=== PATIENT | male | born 1980 | race Caucasian/White ===

== ENCOUNTER 2025-02-01 11:59 | Day surgery (SDC) | payer OTHER ==
[2025-02-01] MEDS ORDERED: methylPREDNISolone acetate IM ONE (12:00)
[2025-02-01] MEDS ORDERED: Sodium Chloride 0.9(Preservative Free) 10 ML IJ ONE (12:00)
[2025-02-01] MEDS ORDERED: propofoL IV ONE (13:41)
[2025-02-01] MEDS ORDERED: Lactated Ringers 1,000 ML IV ONE (15:52)
--- NOTE | 2025-02-01 16:44 | XRAY ---
Indication: Caudal FLORENCE Intraoperative fluoroscopy provided for 16 seconds. 2 digital spot image submitted for interpretation demonstrates caudal needle tip projecting mid sacrum. Small amount of contrast injected for needle tip placement. Correlate with intraoperative findings/report.
--- NOTE | 2025-02-01 17:04 | XRAY ---
16 seconds of fluoroscopy was used in surgery for a caudal FLORENCE.
== END 2025-02-01 14:14 | disposition home or self-care (01) ==
LOC: SDC-PAIN 11:59
PROVIDERS: ATTEND Psychiatry & Neurology Pain Medicine
DX: M54.16 Radiculopathy, lumbar region (principal)

== ENCOUNTER 2025-03-15 10:55 | Day surgery (SDC) | payer OTHER ==
[2025-03-15] MEDS ORDERED: LIDOCAINE HCL 2% 100 MG/5 ML IJ ONE (10:56)
[2025-03-15] MEDS ORDERED: methylPREDNISolone acetate IM ONE (10:56)
[2025-03-15] MEDS ORDERED: Lactated Ringers 1,000 ML IV ONE (13:45)
[2025-03-15] MEDS ORDERED: propofoL IV ONE (13:48)
--- NOTE | 2025-03-15 15:10 | XRAY ---
Indication: Bilateral L4-S1 MBB. Intraoperative fluoroscopy provided for 18 seconds. Single digital spot image submitted for interpretation demonstrates posterior needle tips projecting over expected left and right L4-S1 nerve roots. Correlate with intraoperative findings/report.
--- NOTE | 2025-03-15 15:16 | XRAY ---
18 seconds of fluoroscopy was used in surgery for a bilateral L4-S1 MBB.
== END 2025-03-15 14:20 | disposition home or self-care (01) ==
LOC: SDC-PAIN 10:55
PROVIDERS: ATTEND Psychiatry & Neurology Pain Medicine
DX: M47.817 Spondylosis without myelopathy or radiculopathy, lumbosacral region (principal)